=== PATIENT | female | born 1995 | race Hispanic/Latino ===

== ENCOUNTER 2020-08-07 09:26 | Outpatient (CLI) | payer BC ==
[2020-08-07 11:29] LABS: Chol/HDL Ratio 2.27 %
== END 2020-08-07 09:27 | disposition home or self-care (01) ==
LOC: LAB 09:26
DX: Z11.8 Encounter for screening for other infectious and parasitic diseases (principal); Z13.228 Encounter for screening for other metabolic disorders
CPT/HCPCS: 36415; 80061; 82947; 87517

== ENCOUNTER 2022-02-19 07:00 | Outpatient (CLI) | payer BC ==
--- NOTE | 2022-02-19 09:17 | Magnetic Resonance Report ---
MRI left knee without contrast INDICATION: M25.562 MEDIAL PAIN IN LEFT KNEE . COMPARISON: None FINDINGS: Lateral compartment pivot shift contusions are present with fluid bright signal in the ACL (especially the mid substance) but clearly intact fibers. The PCL is intact. There is also a small c ontusion along the medial aspect of the medial femoral condyle with no discrete fracture. The menisci, extensor mechanism, and collateral ligaments are intact. There is a trace joint effusion. No popliteal fossa cyst. IMPRESSION: Bone contusions as outlined above notable for lateral compartment pivot shift contusion pattern with moderate ACL sprain but no discrete tear. Signer Name: Jim Caballero MD Signed: 02/19/2022 9:13 AM Workstation Name: [id number]
== END 2022-02-19 07:01 | disposition home or self-care (01) ==
LOC: MRI 07:00
PROVIDERS: ATTEND Orthopaedic Surgery
DX: S83.8X2A Sprain of other specified parts of left knee, initial encounter (principal); X58.XXXA Exposure to other specified factors, initial encounter; Y93.89 Activity, other specified; Y92.89 Other specified places as the place of occurrence of the external cause; Y99.8 Other external cause status
CPT/HCPCS: 73721

== ENCOUNTER 2022-05-14 13:04 | Outpatient (CLI) | payer BC | END 2022-05-14 13:05 | disposition home or self-care (01) | LOC: LAB 13:04 | PROVIDERS: ATTEND Obstetrics & Gynecology | DX: Z01.419 Encounter for gynecological examination (general) (routine) without abnormal findings (principal); R87.612 Low grade squamous intraepithelial lesion on cytologic smear of cervix (LGSIL) | CPT/HCPCS: 36415; 88305 ==